=== PATIENT | female | born 1995 | race African-American/Black ===

== ENCOUNTER 2022-06-16 09:35 | Emergency (ER) | payer OTHER ==
[2022-06-16 09:54] VITALS: RESP 18; TEMP 98.2; BMI 25.7
[2022-06-16 11:44] LABS: HEMATOCRIT 38.8 % (32.4-45.2); HEMOGLOBIN 12.9 GM/dL (10.7-15.3); MCH 29.7 pg (25.7-33.7); MCHC 33.3 g/dl (32.0-36.0); MEAN PLT VOLUME 8.8 fl (7.5-11.1); PLATELET COUNT 130 10^3/uL (134-434); RBC 4.36 M/mm3 (3.60-5.2); RDW 13.2 % (11.6-15.6)
[2022-06-16 11:49] LABS: WHITE BLOOD COUNT 11.4 K/mm3 (4.0-10.0)
[2022-06-16 12:25] LABS: BLOOD UREA NITROGEN 7.7 mg/dL (7-18); CALCIUM 9.5 mg/dL (8.5-10.1); MAGNESIUM 2.2 mg/dL (1.8-2.4)
[2022-06-16 12:28] LABS: CREATININE 0.6 mg/dL (0.55-1.3)
[2022-06-16 12:30] LABS: BILIRUBIN,TOTAL 0.7 mg/dL (0.2-1); TOT PROT 8.1 g/dl (6.4-8.2)
[2022-06-16 12:33] LABS: ANISOCYTOSIS 0; HELMET CELLS 0; HOWELL-JOLLY BODIES 0; MACROCYTOSIS 0; OVALOCYTE 0; ROULEAU 0; SICKELED CELLS 0; TARGET CELLS 0; TEAR DROP CELLS 0; TOXIC GRANULATION 0
[2022-06-16 14:33] VITALS: BP 101/66; PULSE 65
== END 2022-06-16 14:44 | disposition home or self-care (01) ==
LOC: JERFT 09:35
DX: R20.2 Paresthesia of skin (principal)
CPT/HCPCS: 36415; 70450-TC; 72125-TC; 80053; 83735; 84703; 85025; 99284-25